=== PATIENT | female | born 1985 | race Hispanic/Latino ===

== ENCOUNTER 2018-03-14 18:30 | Emergency (ER) | payer SELFPAY ==
[2018-03-14 18:52] LABS: #Basophils 0.1 thou/uL (0.0-0.2); #Eosinphils 0.2 thou/uL (0.0-0.7); #Lymphocytes 2.9 thou/uL (1.20-3.40); #Monocytes 0.4 thou/uL (0.11-0.59); %Basophils 1.6 % (0.0-1.0); %Eosinophils 2.2 % (0.0-10.0); %Lymphocytes 37.6 % (21.0-51.0); %Monocytes 5.6 % (0.0-10.0); Hemoglobin 12.2 g/dL (12.0-16.0); Mean Corpuscular HGB CONC 34.4 g/dL (32.0-36.0); Mean Corpuscular Hemoglobin 32.6 pg (27.0-31.0); Mean Corpuscular Volume 94.8 fl (81.0-99.0); Mean Platelet Volume 6.5 fL (7.4-10.4); Platelet Count 418 thou/uL (130-400); RBC Distribution Width 11.7 % (11.5-14.5); Red Blood Cell (RBC) Count 3.73 mill/uL (4.20-5.40); White Blood Cell (WBC) Count 7.6 thou/uL (4.8-10.8)
[2018-03-14 19:15] LABS: ALT (SGPT) 14 U/L (8-55); AST (SGOT) 15 U/L (5-34); Albumin 4.2 g/dL (3.5-5.0); Alkaline Phosphatase 99 U/L (40-150); Anion Gap 11 mmol/L (10-20); BUN (Urea Nitrogen) 16 mg/dL (7.0-18.7); Bilirubin, Total 0.2 mg/dL (0.2-1.2); Calc. Creatinine Clearance 0 mL/min (70-130); Calcium 9.5 mg/dL (7.8-10.44); Carbon Dioxide 26 mmol/L (22-29); Chloride 104 mmol/L (98-107); Estimated GFR-MDRD 83; Globulin 3.6 g/dL (2.4-3.5); Glucose 106 mg/dL (70-105); Potassium 3.8 mmol/L (3.5-5.1); Protein, Total 7.8 g/dL (6.0-8.3); Sodium 137 mmol/L (136-145)
[2018-03-14 19:22] LABS: Bilirubin Moderate (Negative); Blood, Urine Large (Negative); Clarity TURBID (Clear); Glucose, Urine (Dipstick) Negative (Negative); Leukocyte Moderate (Negative); Nitrite Negative (Negative); Protein, Urine (Dipstick) 30 mg/dL (Neg-Trace); Specific Gravity, Urine 1.026 (1.002-1.036); Urobilinogen 0.2 mg/dL (0.2-1.0)
[2018-03-14 19:24] LABS: Bacteria/HPF None Seen HPF (None Seen); Hyaline Casts/LPF 0-3 HYALINE CAST LPF (0-3 Hyaline); Pathc Cast-AUWi Flag 0.51 (0-2.49); WBC/HPF 21-50 HPF (0-3)
[2018-03-14 19:26] LABS: Pregnancy Test - Urine (BHCG) Negative (Negative); Pregu Control Background? CLEAR/WHITE (CLR/WHITE); Pregu Control Bar Appear? YES (CONTROL BAR); Specific Gravity 1.026 (1.002-1.036)
[2018-03-14 19:32] LABS: Yeast-AUWi Flag 195.2 (0-25.0)
[2018-03-14 19:33] LABS: RBC/HPF GREATER THAN 50-TNTC HPF (0-3)
[2018-03-14 19:34] LABS: Renal Epithelial None Seen HPF (0-3); Transitional Epithelial NONE SEEN HPF (0-3); Yeast-All Forms None Seen HPF (None Seen)
--- NOTE | 2018-03-14 22:42 | ULT ---
PELVIC ULTRASOUND INCLUDING TRANSABDOMINAL AND VASCULAR DUPLEX WITH COLOR AND SPECTRAL DOPPLER IMAGIN 03/14/18 HISTORY: 32-year-old female with history of pain and bleeding with menstrual cramping. No transvaginal exam was performed at patient's request. The uterus is upper range of normal size. endometrium is 0.5 cm. Right and left ovaries are within no rmal limits. No solid or cystic mass. No abscess or abnormal fluid collection. Vascular flow is docu mented to both ovaries. IMPRESSION: Unremarkable pelvic ultrasound. Uterus is within upper range of normal limits and is somewhat antever zo. No significant abnormality. POS: [facility]
== END 2018-03-14 23:32 | disposition home or self-care (01) ==
LOC: ERS 18:30
DX: N93.9 Abnormal uterine and vaginal bleeding, unspecified (principal); Z87.891 Personal history of nicotine dependence; Z71.6 Tobacco abuse counseling
CPT/HCPCS: 36415; 76856; 80053; 81003; 81015; 81025; 85025; 93976; 99406

== ENCOUNTER 2018-10-12 22:22 | Emergency (ER) | payer MEDICAID, SELFPAY | END 2018-10-12 23:07 | disposition home or self-care (01) | LOC: ERS 22:22 | DX: K04.7 Periapical abscess without sinus (principal); Z71.6 Tobacco abuse counseling; F17.210 Nicotine dependence, cigarettes, uncomplicated | CPT/HCPCS: 99406 ==

== ENCOUNTER 2019-12-03 00:17 | Emergency (ER) | payer MEDICAID, OTHER ==
[2019-12-03] MEDS ORDERED: Ketorolac Tromethamine 30 MG/ML VIAL ONE (00:44)
== END 2019-12-03 01:17 | disposition home or self-care (01) ==
LOC: ERS 00:17
DX: M25.551 Pain in right hip (principal); M54.5 Low back pain; F17.210 Nicotine dependence, cigarettes, uncomplicated; X50.1XXA Overexertion from prolonged static or awkward postures, initial encounter; Y92.812 Truck as the place of occurrence of the external cause
CPT/HCPCS: 96372; 99283; J1885

== ENCOUNTER 2021-05-30 10:44 | Emergency (ER) | payer OTHER | END 2021-05-30 11:40 | disposition home or self-care (01) | LOC: ERS 10:44 | DX: S90.31XA Contusion of right foot, initial encounter (principal); F17.210 Nicotine dependence, cigarettes, uncomplicated; W20.8XXA Other cause of strike by thrown, projected or falling object, initial encounter ==